=== PATIENT | male | born 1975 | race Caucasian/White ===

== ENCOUNTER 2019-07-02 23:01 | Inpatient (IN) | payer OTHER ==
[2019-07-02 23:35] VITALS: BMI 29.4
--- NOTE | 2019-07-03 00:16 | HP ---
CIWA Score Nausea/Vomitin-Mild Nausea/No Vomiting Muscle Tremors: 4-Moderate,w/Arms Extend Anxiety: 3 Agitation: 3 Paroxysmal Sweats: 3 Orientation: 0-Oriented Tacttile Disturbances: 0-None Auditory Disturbances: 0-None Visual Disturbances: 0-None Headache: 4-Moderately Severe CIWA-Ar Total Score: 18 - Admission Criteria OASAS Guidelines: Admission for Medically Managed Detox: Requires at least one of the followin. CIWA greater than 12 2. Seizures within the past 24 hours 3. Delirium tremens within the past 24 hours 4. Hallucinations within the past 24 hours 5. Acute intervention needed for co occurring medical disorder 6. Acute intervention needed for co occurring psychiatric disorder 7. Severe withdrawal that cannot be handled at a lower level of care (continued vomiting, continued diarrhea, abnormal vital signs) requiring intravenous medication and/or fluids 8. Admitting History and Physical - Smoking History Smoking history: Former smoker Have you smoked in the past 12 months: No - Alcohol/Substance Use Hx Alcohol Use: Yes Admission ROS [facility] - [facility] Chief Complaint: Alcohol withdrawal symptoms Allergies/Adverse Reactions: Allergies Allergy/AdvReac Type Severity Reaction Status Date / Time peanut [Peanut] Allergy Severe Itching Verified 07/02/19 23:16 History of Present Illness: 44 years old male with a long history of alcohol dependence is seeking admission to detox. Patient was transferred from [facility] emergency room . He denies pasty medical history and reports psych. history of depression and anxiety. 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 His last blackout was yesterday where he was unresponsive and received Narcan from EMS. Patient reports that he is unemployed and lives in [place] [facility]. He denies suicide attempt and suicidal ideation at this time. Exam Limitations: No Limitations - Ebola screening Have you traveled outside of the country in the last 21 days: No (N) Have you had contact with anyone from an Ebola affected area: No Do you have a fever: No - Review of Systems Constitutional: Chills, Malaise, Night Sweats, Changes in sleep EENT: reports: No Symptoms Reported Respiratory: reports: No Symptoms reported Cardiac: reports: No Symptoms Reported GI: reports: Nausea, Poor Appetite, Poor Fluid Intake, Abdominal cramping : reports: No Symptoms Reported Musculoskeletal: reports: Back Pain Integumentary: reports: Dryness, Flushing Neuro: reports: Tremors Endocrine: reports: No Symptoms Reported Hematology: reports: No Symptoms Reported Psychiatric: reports: Mood/Affect Appropiate, Orientated x3, Anxious, Depressed Other Systems: Reviewed and Negative Patient History - Patient Medical History Hx Anemia: No Hx Asthma: No Hx Chronic Obstructive Pulmonary Disease (COPD): No Hx Cardiac Disorders: No Hx Congestive Heart Failure: No Hx Hypertension: No Hx Hypercholesterolemia: No Hx Pacemaker: No HX Cerebrovascular Accident: No Hx Seizures: No Hx Diabetes: No Hx Gastrointestinal Disorders: No Hx Liver Disease: No Hx Genitourinary Disorders: No Hx Sexually Transmitted Disorders: No Hx Renal Disease (ESRD): No Hx Thyroid Disease: No Hx Human Immunodeficiency Virus (HIV): No (Negative 2019) Hx Hepatitis C: No Hx Depression: Yes Hx Suicide Attempt: No Hx Bipolar Disorder: No Hx Schizophrenia: No Other Medical History: Anxiety - - Patient Surgical History Past Surgical History: No - PPD History Previous Implant?: No Documented Results: Negative w/proof Implanted On Prior R Admission?: Yes Date: 12/20/11 PPD to be Administered?: Yes - Reproductive History Patient is a Female of Child Bearing Age (11 -55 yrs old): No (male) - Smoking Cessation Smoking history: Current every day smoker Have you smoked in the past 12 months: No Aproximately how many cigarettes per day: 20 Hx Chewing Tobacco Use: No Initiated information on smoking cessation: Yes 'Breaking Loose' booklet given: 07/03/19 - Substance & Tx. History Hx Alcohol Use: Yes Hx Substance Use: Yes Substance Use Type: Alcohol, Cocaine Hx Substance Use Treatment: Yes ([facility]) - Substances abused Alcohol Substance route: Oral Frequency: Daily Amount used: 12 packs beer Age of first use: 18 Date of last use: 07/02/19 Cocaine Substance route: Smoking Frequency: 1-2 times per week Amount used: 300 hundred dollars. Age of first use: 37 Date of last use: 06/18/19 Admission Physical Exam BHS - Vital Signs Vital Signs: Vital Signs - 24 hr 07/02/19 23:15 Temperature 98.0 F Pulse Rate 69 Respiratory 16 Rate Blood Pressure 126/74 - Physical General Appearance: Yes: Moderate Distress, Tremorous, Sweating, Anxious HEENTM: Yes: Within Normal Limits Respiratory: Yes: Lungs Clear, Normal Breath Sounds, No Respiratory Distress Neck: Yes: Within Normal Limits Breast: Yes: Breast Exam Deferred Cardiology: Yes: Regular Rhythm, Regular Rate Abdominal: Yes: Normal Bowel Sounds, Soft Genitourinary: Yes: Within Normal Limits Back: Yes: Normal Inspection Musculoskeletal: Yes: Within Normal Limits Extremities: Yes: Normal Inspection Neurological: Yes: Within Normal Limits, Alert, Normal Mood/Affect Integumentary: Yes: Warm Lymphatic: Yes: Within Normal Limits - Diagnostic (1) Alcohol dependence with withdrawal, uncomplicated Current Visit: Yes Status: Acute (2) Nicotine dependence Current Visit: Yes Status: Chronic Qualifiers: Nicotine product type: cigarettes Substance use status: in withdrawal Qualified Code(s): F17.213 - Nicotine dependence, cigarettes, with withdrawal (3) Depression Current Visit: Yes Status: Chronic Qualifiers: Depression Type: unspecified Qualified Code(s): F32.9 - Major depressive disorder, single episode, unspecified (4) Anxiety Current Visit: Yes Status: Chronic Cleared for Admission [facility] - Detox or Rehab [facility] Level of Care: Medically Managed Detox Regimen/Protocol: Librium Claeared for Rehab Admission: No Breathalyzer - Breathalyzer Breathalyzer: 0.19 Urine Drug Screen - Test Device Lot number: [id number] Expiration date: 01/08/21 - Control Is test valid?: Yes - Results Drug screen NEGATIVE: No Urine drug screen results: BZO-Benzodiazepines Inpatient Rehab Admission - Rehab Decision to Admit Inpatient rehab admission?: No
[2019-07-03] MEDS ORDERED: BISMUTH SUBSALICYLATE 524 MG/30 ML UD PO PRN (00:25)
[2019-07-03] MEDS ORDERED: MENTHOL/PHENOL 1 EACH UD MM PRN (00:25)
[2019-07-03] MEDS ORDERED: hydrOXYzine PAMOATE 25 MG CAPSULE (FP) PO PRN (00:25)
[2019-07-03] MEDS ORDERED: ACETAMINOPHEN 325 MG TABLET (FP) PO PRN ×2 (00:25)
[2019-07-03] MEDS ORDERED: MELATONIN 5 MG TABLETS PO PRN ×2 (00:25→22:00)
[2019-07-03] MEDS ORDERED: METHOCARBAMOL 500 MG TABLET PO PRN (00:25)
[2019-07-03] MEDS ORDERED: MAG HYDROX/AL HYDROX/SIMETH 30 ML UNIT-DOSE CUP PO PRN (00:25)
[2019-07-03] MEDS ORDERED: IBUPROFEN 400 MG TABLET (FP) PO PRN (00:25)
[2019-07-03] MEDS ORDERED: MAGNESIUM CITRATE 300 ML BOTTLE PO PRN (00:25)
[2019-07-03] MEDS ORDERED: MAGNESIUM HYDROX 2400MG/30ML ORAL SUSPENSION 30 ML CUP PO PRN (00:25)
[2019-07-03] MEDS ORDERED: NICOTINE POLACRILEX 2 MG GUM BUC PRN (00:25)
[2019-07-03] MEDS: chlordiazePOXIDE HCL 25 MG CAPSULE PO PRN ×2 (01:44→14:48)
[2019-07-03] MEDS: chlordiazePOXIDE HCL 25 MG CAPSULE PO SCH ×3 (06:18→17:42)
[2019-07-03] MEDS ORDERED: NICOTINE 21 MG/24 HOURS TOPICAL PATCH TD SCH (10:00)
[2019-07-03] MEDS ORDERED: PRENATAL VITAMINS W/ FOLIC ACID TABLET (FP) PO SCH (10:00)
--- NOTE | 2019-07-03 10:16 | PN ---
S CIWA - CIWA Score Nausea/Vomitin-Mild Nausea/No Vomiting Muscle Tremors: 2 Anxiety: 2 Agitation: 1-Slight > Activity Paroxysmal Sweats: 3 Orientation: 0-Oriented Tacttile Disturbances: 1-Very Mild Itch/Numbness Auditory Disturbances: 0-None Visual Disturbances: 1-Very Mild Sensitivity Headache: 0-None Present CIWA-Ar Total Score: 11 BHS Progress Note (SOAP) Subjective: Patient is a 44 yo male with hx of alcohol dependence on librium detox protocol c/o of sweats, back pain, body aches, chills. Objective: 07/03/19 12:38 Vital Signs Temperature 97.4 F L 07/03/19 09:27 Pulse Rate 71 07/03/19 09:27 Respiratory Rate 18 07/03/19 09:27 Blood Pressure 128/80 07/03/19 09:27 O2 Sat by Pulse Oximetry (%) labs pending Assessment: 07/03/19 12:38 Patient is Aox3 no acute distress + diaphoretic full ROM no gait disturbance ambulating in the unit withdrawal sx Plan: increase fluids continue detox continue to monitor
[2019-07-03] MEDS ORDERED: FLU VACCINE QUAD 60 MCG/0.5 ML (MDV 19-20) IM ONE (12:00)
[2019-07-03] MEDS ORDERED: PNEUMOC 13-VAL CONJ-DIP CRM/PF 0.5 ML DISP.SYRIN IM ONE (12:00)
[2019-07-03] MEDS ORDERED: PNEUMOCOCCAL 23 VACCINE 0.5 ML VIAL IM ONE (12:00)
--- NOTE | 2019-07-03 12:20 | CONSULT ---
[facility] Psychiatric Consult - Data Date of interview: 07/03/19 Admission source: [facility] Identifying data: Patient is a 44 year old single male, without children, unemployed, homeless, and is supported by [facility]. This is patient's first admission to detox at [facility]. Patient admitted to for alcohol and cocaine dependence. Substance Abuse History: Smoking Cessation. Smoking history: Current every day smoker. Have you smoked in the past 12 months: No. Aproximately how many cigarettes per day: 20. Hx Chewing Tobacco Use: No. Initiated information on smoking cessation: Yes. 'Breaking Loose' booklet given: 07/03/19. - Substance & Tx. History. Hx Alcohol Use: Yes. Hx Substance Use: Yes. Substance Use Type : Alcohol, Cocaine. Hx Substance Use Treatment: Yes ([facility]). - Substances abused. Alcohol. Substance route: Oral. Frequency: Daily. Amount used: 12 packs beer. Age of first use: 18. Date of last use: 07/02/19. Cocaine. Substance route: Smoking. Frequency: 1-2 times per week. Amount used: 300 hundred dollars. Age of first use: 37. Date of last use: 06/18/19 Psychiatric History: Patient presents as a vague historian. Patient's first psychiatric contact was in 2004 at a private office due to feeling depressed. He was prescribed klonopin + other psychotropic medications. Stated to handbook writer, " I do not want to go through every medications i have taken." States he was diagnosed with OCD, schizoaffective disorder. Mr. Mcdowell's most recent outpatient psychiatric care was one year ago in [place] but is unable to recall medications prescribed. Patient appears to have a history of noncompliance to treatment. He denies history of psychiatric hospitalizations and suicide attempt. At present he denies auditory/visual hallucinations. Physical/Sexual Abuse/Trauma History: denies. Mental Status Exam - Mental Status Exam Alert and Oriented to: Time, Place, Person Cognitive Function: Good Patient Appearance: Well Groomed Mood: Anxious, Irritable (slightly irritable but in control) Affect: Mood Congruent Patient Behavior: Fatigued, Uncooperative (unwilling to elaborate on history. states he's not in the right state of mind to answer all the questions. ) Speech Pattern: Appropriate Voice Loudness: Normal Thought Process: Goal Oriented Thought Disorder: Not Present Hallucinations: Denies Suicidal Ideation: Denies Homicidal Ideation: Denies Insight/Judgement: Poor Sleep: Poorly Appetite: Fair Muscle strength/Tone: Normal Gait/Station: Normal Psychiatric Findings - Problem List ([place] 1, 2,3) (1) Alcohol dependence with withdrawal, uncomplicated Current Visit: Yes Status: Acute (2) Nicotine dependence Current Visit: Yes Status: Chronic Qualifiers: Nicotine product type: cigarettes Substance use status: in withdrawal Qualified Code(s): F17.213 - Nicotine dependence, cigarettes, with withdrawal (3) Substance induced mood disorder Current Visit: Yes Status: Acute (4) Substance-induced sleep disorder Current Visit: Yes Status: Acute (5) Mood disorder Current Visit: No Status: Suspected - Initial Treatment Plan Initial Treatment Plan: Psychoeducation provided. Detoxification in progress. Will order Melatonin 10mg HS. Benefits and side effects discussed. Verbal consent given.
--- NOTE | 2019-07-03 15:15 | EKG ---
Test Reason : Blood Pressure : / mmHG Vent. Rate : 065 BPM Atrial Rate : 065 BPM P-R Int : 140 ms QRS Dur : 088 ms QT Int : 434 ms P-R-T Axes : 043 066 030 degrees QTc Int : 451 ms NORMAL SINUS RHYTHM NORMAL ECG NO PREVIOUS ECGS AVAILABLE Confirmed by CR PACHECO MD ([id number]) on 07/03/2019 3:15:02 PM Referred By: Jean Hendrickson Confirmed By:CR PACHECO MD
[2019-07-03 21:36] VITALS: BP 129/80; PULSE 69; TEMP 97.7
--- NOTE | 2019-07-03 21:43 | DS ---
[facility] Detox Discharge Summary Admission Date: 07/03/19 Discharge Date: 07/03/19 (Pt left AMA) - History Present History: Alcohol Dependence, Cocaine Dependence Additional Comments: As per H&P: "44 years old male with a long history of alcohol dependence is seeking admission to detox. Patient was transferred from [facility] emergency room . He denies pasty medical history and reports psych. history of depression and anxiety. 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 His last blackout was yesterday where he was unresponsive and received Narcan from EMS. Patient reports that he is unemployed and lives in a jail. He denies suicide attempt and suicidal ideation at this time". Pt left AMA, pt did not complete the detox protocol. Pt did not wait for the provider to evaluate him. As per RN, pt states, he just want to leave and an attempt to let him stay and complete the detox protocol failed. Pt was admitted today and left AMA. Pertinent Past History: h/o alcohol and cocaine use disorder. - Physical Exam Results Vital Signs: Vital Signs Temperature 97.7 F 07/03/19 21:35 Pulse Rate 69 07/03/19 21:35 Respiratory Rate 18 07/03/19 21:35 Blood Pressure 129/80 07/03/19 21:35 O2 Sat by Pulse Oximetry (%) Vital Signs 07/03/19 07/03/19 17:19 21:35 Temperature 98.1 F 97.7 F Pulse Rate 66 69 Respiratory 18 18 Rate Blood Pressure 131/84 129/80 Pertinent Admission Physical Exam Findings: withdrawal symptoms. - Medication Discharge Medications: Ambulatory Orders Fluoxetine HCl [Prozac] 20 mg PO DAILY 12/18/11 Gabapentin 1,200 mg PO TID 12/18/11 clonazePAM [Klonopin] 1 mg PO BID 12/18/11 - Diagnosis (1) Alcohol dependence Status: Active (2) Alcohol dependence with withdrawal, uncomplicated Status: Acute (3) Cocaine dependence Status: Chronic (4) Nicotine dependence Status: Chronic Qualifiers: Nicotine product type: cigarettes Substance use status: in withdrawal Qualified Code(s): F17.213 - Nicotine dependence, cigarettes, with withdrawal - AMA Did Patient Leave Against Medical Advice: Yes
[2019-07-03] MEDS ORDERED: THIAMINE HCL 100 MG TABLET (FP) PO SCH (22:00)
[2019-07-04] MEDS ORDERED: chlordiazePOXIDE HCL 25 MG CAPSULE PO SCH (05:00)
[2019-07-05] MEDS ORDERED: chlordiazePOXIDE HCL 10 MG CAPSULE PO PRN
[2019-07-05] MEDS ORDERED: chlordiazePOXIDE HCL 10 MG CAPSULE PO SCH (05:00)
[2019-07-06] MEDS ORDERED: chlordiazePOXIDE HCL 10 MG CAPSULE PO SCH (05:00)
[2019-07-07] MEDS ORDERED: chlordiazePOXIDE HCL 10 MG CAPSULE PO ONE (05:00)
== END 2019-07-03 21:09 | disposition left against medical advice (07) | DRG 894 ==
LOC: YASAS 23:01 → Y3N 07-03 01:01
PROVIDERS: ADMIT Allergy & Immunology; ATTEND Allergy & Immunology
PROC: HZ2ZZZZ Detoxification Services for Substance Abuse Treatment (ICD-10-PCS; principal; 2019-07-03)
DX: F10.230 Alcohol dependence with withdrawal, uncomplicated (principal); F14.20 Cocaine dependence, uncomplicated; F19.282 Other psychoactive substance dependence with psychoactive substance-induced sleep disorder; F17.213 Nicotine dependence, cigarettes, with withdrawal; F19.24 Other psychoactive substance dependence with psychoactive substance-induced mood disorder; F32.9 Major depressive disorder, single episode, unspecified; F39 Unspecified mood [affective] disorder; F41.8 Other specified anxiety disorders
CPT/HCPCS: 93005; 93010

== ENCOUNTER 2021-07-21 13:46 | Inpatient (IN) | payer OTHER ==
[2021-07-21] MEDS ORDERED: MENTHOL/PHENOL 1 EACH UD MM PRN (15:15)
[2021-07-21] MEDS ORDERED: ACETAMINOPHEN 325 MG TABLET (FP) PO PRN (15:15)
[2021-07-21] MEDS ORDERED: MAG HYDROX/AL HYDROX/SIMETH 30 ML UNIT-DOSE CUP PO PRN (15:15)
[2021-07-21] MEDS ORDERED: BISMUTH SUBSALICYLATE 524 MG/30 ML PO PRN (15:15)
[2021-07-21] MEDS ORDERED: LORazepam 1 MG TABLET PO PRN (15:15)
[2021-07-21] MEDS ORDERED: ONDANSETRON *ODT* 4 MG TABLET SL PRN (15:15)
[2021-07-21] MEDS ORDERED: MAGNESIUM HYDROX 2400MG/30ML ORAL SUSPENSION 30 ML CUP PO PRN (15:15)
[2021-07-21] MEDS ORDERED: MAGNESIUM CITRATE 300 ML BOTTLE PO PRN (15:15)
[2021-07-21 15:46] VITALS: BMI 35.5
[2021-07-21] MEDS: LORazepam 2 MG TABLET PO SCH ×2 (17:00→23:42)
[2021-07-21] MEDS: MELATONIN 5 MG TABLETS PO SCH (23:43)
[2021-07-21] MEDS: NICOTINE 14 MG/24 HOURS TOPICAL PATCH TD SCH (23:43)
[2021-07-21] MEDS: hydrOXYzine PAMOATE 25 MG CAPSULE (FP) PO SCH (23:44)
[2021-07-21] MEDS: PRENATAL VITAMINS W/ FOLIC ACID TABLET (FP) PO SCH (23:44)
[2021-07-21] MEDS: THIAMINE HCL 100 MG TABLET (FP) PO SCH (23:45)
[2021-07-22] MEDS ORDERED: LORazepam 2 MG TABLET ONE ×2 (06:38→10:13)
[2021-07-22] MEDS ORDERED: hydrOXYzine PAMOATE 25 MG CAPSULE (FP) PO ONE ×2 (06:38→10:13)
[2021-07-22] MEDS: hydrOXYzine PAMOATE 25 MG CAPSULE (FP) PO SCH ×5 (06:45→22:09)
[2021-07-22] MEDS: LORazepam 2 MG TABLET PO SCH ×4 (06:45→22:09)
[2021-07-22] MEDS: NICOTINE 14 MG/24 HOURS TOPICAL PATCH TD SCH (10:15)
[2021-07-22] MEDS: PRENATAL VITAMINS W/ FOLIC ACID TABLET (FP) PO SCH (10:15)
[2021-07-22 10:57] LABS: HEMATOCRIT 38.8 % (35.4-49); HEMOGLOBIN 13.5 GM/dL (11.7-16.9); MCH 29.7 pg (25.7-33.7); MCHC 34.8 g/dl (32.0-35.9); MEAN CELL VOLUME 85.5 fl (80-96); MEAN PLT VOLUME 9.4 fl (7.5-11.1); PLATELET COUNT 185 10^3/uL (134-434); RBC 4.54 M/mm3 (4.00-5.60); RDW 13.9 % (11.9-15.9); WHITE BLOOD COUNT 4.2 K/mm3 (4.0-10.0)
[2021-07-22 11:06] LABS: CALCIUM 8.7 mg/dL (8.5-10.1)
[2021-07-22 11:07] LABS: ALBUMIN 3.6 g/dl (3.4-5.0); BLOOD UREA NITROGEN 13.1 mg/dL (7-18)
[2021-07-22 11:11] LABS: BILIRUBIN,TOTAL 0.6 mg/dL (0.2-1); TOT PROT 6.5 g/dl (6.4-8.2)
[2021-07-22 11:52] LABS: HIV INTERPRETATION NEGATIVE (NEGATIVE)
[2021-07-22] MEDS ORDERED: PNEUMOCOCCAL 23 VACCINE 0.5 ML VIAL IM ONE (12:00)
[2021-07-22] MEDS ORDERED: PNEUMOC 13-VAL CONJ-DIP CRM/PF 0.5 ML DISP.SYRIN IM ONE (12:00)
[2021-07-22] MEDS ORDERED: FLU VACC QS2021-22(6MOS UP)/PF 60 MCG/0.5 ML SYRINGE IM ONE (12:00)
[2021-07-22] MEDS: GABAPENTIN 300 MG CAPSULE PO SCH ×2 (15:31→22:10)
[2021-07-22] MEDS: IBUPROFEN 400 MG TABLET (FP) PO PRN (15:31)
[2021-07-22] MEDS: THIAMINE HCL 100 MG TABLET (FP) PO SCH (22:09)
[2021-07-22] MEDS: MELATONIN 5 MG TABLETS PO SCH (22:09)
[2021-07-22] MEDS: QUEtiapine FUMARATE 100 MG TABLET (FP) PO SCH (22:10)
[2021-07-23] MEDS: LORazepam 1 MG TABLET PO SCH ×4 (05:55→22:04)
[2021-07-23] MEDS: hydrOXYzine PAMOATE 25 MG CAPSULE (FP) PO SCH ×5 (05:55→22:03)
[2021-07-23] MEDS: GABAPENTIN 300 MG CAPSULE PO SCH ×3 (05:55→22:03)
[2021-07-23] MEDS: PRENATAL VITAMINS W/ FOLIC ACID TABLET (FP) PO SCH (10:21)
[2021-07-23] MEDS: FLUoxetine HCL 20 MG CAPSULE PO SCH (10:21)
[2021-07-23] MEDS: ARIPiprazole 5 MG TABLET PO SCH (13:31)
[2021-07-23] MEDS: NICOTINE POLACRILEX 4 MG GUM BUC PRN (17:45)
[2021-07-23] MEDS: IBUPROFEN 400 MG TABLET (FP) PO PRN (17:46)
[2021-07-23] MEDS: THIAMINE HCL 100 MG TABLET (FP) PO SCH (22:03)
[2021-07-23] MEDS: MELATONIN 5 MG TABLETS PO SCH (22:03)
[2021-07-23] MEDS: METHOCARBAMOL 500 MG TABLET PO PRN (22:03)
[2021-07-23] MEDS: QUEtiapine FUMARATE 100 MG TABLET (FP) PO SCH (22:03)
[2021-07-24] MEDS ORDERED: LORazepam 0.5 MG TABLET PO PRN
[2021-07-24] MEDS: hydrOXYzine PAMOATE 25 MG CAPSULE (FP) PO SCH ×5 (05:52→22:11)
[2021-07-24] MEDS: LORazepam 0.5 MG TABLET PO SCH ×4 (05:52→22:09)
[2021-07-24] MEDS: GABAPENTIN 300 MG CAPSULE PO SCH ×3 (05:53→22:11)
[2021-07-24] MEDS: IBUPROFEN 400 MG TABLET (FP) PO PRN ×3 (05:54→22:10)
[2021-07-24] MEDS: FLUoxetine HCL 20 MG CAPSULE PO SCH (10:10)
[2021-07-24] MEDS: ARIPiprazole 5 MG TABLET PO SCH (10:10)
[2021-07-24] MEDS: PRENATAL VITAMINS W/ FOLIC ACID TABLET (FP) PO SCH (10:10)
[2021-07-24] MEDS: NICOTINE POLACRILEX 4 MG GUM BUC PRN ×3 (10:11→17:29)
[2021-07-24] MEDS: NICOTINE 10 MG CARTRIDGE (INHALER) IH PRN (17:30)
[2021-07-24] MEDS: ACETAMINOPHEN 325 MG TABLET (FP) PO PRN (17:31)
[2021-07-24] MEDS: THIAMINE HCL 100 MG TABLET (FP) PO SCH (22:09)
[2021-07-24] MEDS: METHOCARBAMOL 500 MG TABLET PO PRN (22:09)
[2021-07-24] MEDS: MELATONIN 5 MG TABLETS PO SCH (22:09)
[2021-07-24] MEDS: QUEtiapine FUMARATE 100 MG TABLET (FP) PO SCH (22:11)
[2021-07-25] MEDS ORDERED: LORazepam 0.5 MG TABLET PO ONE (05:00)
[2021-07-25] MEDS: hydrOXYzine PAMOATE 25 MG CAPSULE (FP) PO SCH ×5 (05:39→21:11)
[2021-07-25] MEDS: GABAPENTIN 300 MG CAPSULE PO SCH ×3 (05:39→21:11)
[2021-07-25] MEDS: ARIPiprazole 5 MG TABLET PO SCH (10:13)
[2021-07-25] MEDS: FLUoxetine HCL 20 MG CAPSULE PO SCH (10:14)
[2021-07-25] MEDS: PRENATAL VITAMINS W/ FOLIC ACID TABLET (FP) PO SCH (10:32)
[2021-07-25] MEDS ORDERED: MODERNA COVID-19 VACC,MRNA/PF 100 MCG/0.5 ML IM ONE (12:00)
[2021-07-25] MEDS: ACETAMINOPHEN 325 MG TABLET (FP) PO PRN (13:02)
[2021-07-25] MEDS: NICOTINE 10 MG CARTRIDGE (INHALER) IH PRN (17:38)
[2021-07-25] MEDS: THIAMINE HCL 100 MG TABLET (FP) PO SCH (21:10)
[2021-07-25] MEDS: MELATONIN 5 MG TABLETS PO SCH (21:10)
[2021-07-25] MEDS: IBUPROFEN 400 MG TABLET (FP) PO PRN (21:11)
[2021-07-25] MEDS: QUEtiapine FUMARATE 100 MG TABLET (FP) PO SCH (21:11)
[2021-07-26] MEDS: hydrOXYzine PAMOATE 25 MG CAPSULE (FP) PO SCH ×5 (05:52→21:05)
[2021-07-26] MEDS: GABAPENTIN 300 MG CAPSULE PO SCH ×3 (05:52→21:05)
[2021-07-26] MEDS: NICOTINE POLACRILEX 4 MG GUM BUC PRN ×3 (06:14→13:52)
[2021-07-26] MEDS: PRENATAL VITAMINS W/ FOLIC ACID TABLET (FP) PO SCH (10:16)
[2021-07-26] MEDS: FLUoxetine HCL 20 MG CAPSULE PO SCH (10:16)
[2021-07-26] MEDS: ARIPiprazole 5 MG TABLET PO SCH (11:57)
[2021-07-26 12:18] LABS: URINE APPEARANCE CLEAR; URINE BILIRUBIN NEGATIVE (NEGATIVE); URINE COLOR YELLOW; URINE GLUCOSE (UA) NEGATIVE (NEGATIVE); URINE KETONE NEGATIVE (NEGATIVE); URINE LEUK ESTERASE NEGATIVE (NEGATIVE); URINE NITRITE NEGATIVE (NEGATIVE); URINE PROTEIN NEGATIVE (NEGATIVE); URINE UROBILINOGEN 0.2 mg/dL (0.2-1.0)
[2021-07-26] MEDS: NICOTINE 14 MG/24 HOURS TOPICAL PATCH TD SCH (14:44)
[2021-07-26] MEDS: IBUPROFEN 400 MG TABLET (FP) PO PRN ×2 (14:44→21:06)
[2021-07-26] MEDS: QUEtiapine FUMARATE 100 MG TABLET (FP) PO SCH (21:05)
[2021-07-26] MEDS: MELATONIN 5 MG TABLETS PO SCH (21:05)
[2021-07-26] MEDS: THIAMINE HCL 100 MG TABLET (FP) PO SCH (21:05)
[2021-07-27] MEDS: GABAPENTIN 300 MG CAPSULE PO SCH (06:05)
[2021-07-27] MEDS: hydrOXYzine PAMOATE 25 MG CAPSULE (FP) PO SCH ×2 (06:05→09:14)
[2021-07-27 07:16] VITALS: TEMP 98.2
[2021-07-27] MEDS: NICOTINE 14 MG/24 HOURS TOPICAL PATCH TD SCH (09:12)
[2021-07-27] MEDS: ARIPiprazole 5 MG TABLET PO SCH (09:12)
[2021-07-27] MEDS: FLUoxetine HCL 20 MG CAPSULE PO SCH (09:13)
[2021-07-27] MEDS: PRENATAL VITAMINS W/ FOLIC ACID TABLET (FP) PO SCH (09:13)
[2021-07-27 09:17] VITALS: BP 135/82; PULSE 84
== END 2021-07-27 11:08 | disposition left against medical advice (07) | DRG 894 ==
LOC: YASAS 13:46 → Y3N 07-22 10:36 → Y3W 07-25 19:07
PROVIDERS: ADMIT Allergy & Immunology; ATTEND Allergy & Immunology
PROC: HZ2ZZZZ Detoxification Services for Substance Abuse Treatment (ICD-10-PCS; 2021-07-22)
PROC: HZ42ZZZ Group Counseling for Substance Abuse Treatment, Cognitive-Behavioral (ICD-10-PCS; principal; 2021-07-25)
DX: F10.20 Alcohol dependence, uncomplicated (principal); F17.210 Nicotine dependence, cigarettes, uncomplicated; F19.24 Other psychoactive substance dependence with psychoactive substance-induced mood disorder; F32.9 Major depressive disorder, single episode, unspecified; G62.9 Polyneuropathy, unspecified; I10 Essential (primary) hypertension; K21.9 Gastro-esophageal reflux disease without esophagitis; G47.00 Insomnia, unspecified; M54.2 Cervicalgia; M54.50 Low back pain, unspecified; G89.29 Other chronic pain; R74.01 Elevation of levels of liver transaminase levels
CPT/HCPCS: 0012A; 36415; 80053; 81003; 83036; 85027; 86780; 87389; 90686; 90732; 91301; C9803; G0008; G0009; U0003; U0005

== ENCOUNTER 2021-12-24 11:45 | Inpatient (IN) | payer OTHER ==
[2021-12-24 12:41] VITALS: BMI 32.5
[2021-12-24] MEDS ORDERED: ACETAMINOPHEN 325 MG TABLET (FP) PO PRN ×2 (13:32)
[2021-12-24] MEDS ORDERED: LOPERAMIDE HCL 2 MG CAPSULE PO PRN (13:32)
[2021-12-24] MEDS ORDERED: chlordiazePOXIDE HCL 25 MG CAPSULE PO ONE (13:32)
[2021-12-24] MEDS ORDERED: BISMUTH SUBSALICYLATE 524 MG/30 ML PO PRN (13:32)
[2021-12-24] MEDS ORDERED: DICYCLOMINE HCL 10 MG CAPSULE PO PRN (13:32)
[2021-12-24] MEDS ORDERED: IBUPROFEN 400 MG TABLET (FP) PO PRN (13:32)
[2021-12-24] MEDS ORDERED: NICOTINE 10 MG CARTRIDGE (INHALER) IH PRN (13:32)
[2021-12-24] MEDS ORDERED: chlordiazePOXIDE HCL 25 MG CAPSULE PO PRN (13:32)
[2021-12-24] MEDS ORDERED: IBUPROFEN 600 MG TABLET (FP) PO PRN (13:32)
[2021-12-24] MEDS ORDERED: MAGNESIUM HYDROX 2400MG/30ML ORAL SUSPENSION 30 ML CUP PO PRN (13:32)
[2021-12-24] MEDS ORDERED: MAG HYDROX/AL HYDROX/SIMETH 30 ML UNIT-DOSE CUP PO PRN (13:32)
[2021-12-24] MEDS ORDERED: METHOCARBAMOL 500 MG TABLET PO PRN (13:32)
[2021-12-24] MEDS ORDERED: BENZOCAINE/MENTHOL (CHLORASEPTIC ) LOZENGE MM PRN (13:32)
[2021-12-24] MEDS ORDERED: MAGNESIUM CITRATE 300 ML BOTTLE PO PRN (13:32)
[2021-12-24] MEDS ORDERED: COLLOIDAL OATMEAL 1 BAR EACH TP PRN (13:34)
[2021-12-24] MEDS: chlordiazePOXIDE HCL 25 MG CAPSULE PO SCH ×2 (16:53→22:37)
[2021-12-24] MEDS: hydrOXYzine PAMOATE 25 MG CAPSULE (FP) PO SCH ×3 (16:57→22:36)
[2021-12-24] MEDS: SULFAMETHOXAZOLE/TRIMETHOPRIM 800MG/160MG D.S. TABLET PO SCH ×2 (17:05→22:36)
[2021-12-24 18:55] LABS: PH,URINE 5.5 (5.0-8.0); URINE APPEARANCE CLEAR; URINE BILIRUBIN NEGATIVE (NEGATIVE); URINE COLOR YELLOW; URINE GLUCOSE (UA) NEGATIVE (NEGATIVE); URINE KETONE NEGATIVE (NEGATIVE); URINE LEUK ESTERASE NEGATIVE (NEGATIVE); URINE NITRITE NEGATIVE (NEGATIVE); URINE PROTEIN NEGATIVE (NEGATIVE); URINE UROBILINOGEN 0.2 mg/dL (0.2-1.0)
[2021-12-24] MEDS: MELATONIN 5 MG TABLETS PO SCH (22:36)
[2021-12-24] MEDS: THIAMINE HCL 100 MG TABLET (FP) PO SCH (22:36)
[2021-12-25] MEDS: hydrOXYzine PAMOATE 25 MG CAPSULE (FP) PO SCH ×5 (05:39→22:11)
[2021-12-25] MEDS: chlordiazePOXIDE HCL 25 MG CAPSULE PO SCH ×4 (05:39→22:11)
[2021-12-25] MEDS: PRENATAL VITAMINS W/ FOLIC ACID TABLET (FP) PO SCH (10:29)
[2021-12-25] MEDS: SULFAMETHOXAZOLE/TRIMETHOPRIM 800MG/160MG D.S. TABLET PO SCH ×2 (10:29→22:11)
[2021-12-25 11:15] LABS: HEMATOCRIT 40.4 % (35.4-49); HEMOGLOBIN 13.9 GM/dL (11.7-16.9); MCH 29.2 pg (25.7-33.7); MCHC 34.4 g/dl (32.0-35.9); MEAN CELL VOLUME 84.9 fl (80-96); MEAN PLT VOLUME 10.3 fl (7.5-11.1); PLATELET COUNT 183 10^3/uL (134-434); RBC 4.76 M/mm3 (4.00-5.60); RDW 13.5 % (11.9-15.9); WHITE BLOOD COUNT 5.7 K/mm3 (4.0-10.0)
[2021-12-25 12:19] LABS: ALBUMIN 3.4 g/dl (3.4-5.0); BLOOD UREA NITROGEN 14.8 mg/dL (7-18); CALCIUM 8.8 mg/dL (8.5-10.1)
[2021-12-25 12:23] LABS: TOT PROT 6.4 g/dl (6.4-8.2)
[2021-12-25 12:24] LABS: BILIRUBIN,TOTAL 0.4 mg/dL (0.2-1)
[2021-12-25] MEDS: ONDANSETRON *ODT* 4 MG TABLET SL PRN (17:31)
[2021-12-25] MEDS: MELATONIN 5 MG TABLETS PO SCH (22:11)
[2021-12-25] MEDS: QUEtiapine FUMARATE 100 MG TABLET (FP) PO SCH (22:11)
[2021-12-25] MEDS: THIAMINE HCL 100 MG TABLET (FP) PO SCH (22:11)
[2021-12-26] MEDS: chlordiazePOXIDE HCL 25 MG CAPSULE PO SCH ×4 (05:43→22:17)
[2021-12-26] MEDS: hydrOXYzine PAMOATE 25 MG CAPSULE (FP) PO SCH ×5 (05:43→22:18)
[2021-12-26] MEDS: PRENATAL VITAMINS W/ FOLIC ACID TABLET (FP) PO SCH (10:35)
[2021-12-26] MEDS: SULFAMETHOXAZOLE/TRIMETHOPRIM 800MG/160MG D.S. TABLET PO SCH ×2 (10:35→22:17)
[2021-12-26] MEDS: GABAPENTIN 400 MG CAPSULE PO SCH ×2 (14:09→22:17)
[2021-12-26] MEDS: ONDANSETRON *ODT* 4 MG TABLET SL PRN (17:58)
[2021-12-26] MEDS: QUEtiapine FUMARATE 100 MG TABLET (FP) PO SCH (22:17)
[2021-12-26] MEDS: THIAMINE HCL 100 MG TABLET (FP) PO SCH (22:17)
[2021-12-26] MEDS: MELATONIN 5 MG TABLETS PO SCH (22:17)
[2021-12-27] MEDS ORDERED: chlordiazePOXIDE HCL 10 MG CAPSULE PO PRN
[2021-12-27] MEDS: hydrOXYzine PAMOATE 25 MG CAPSULE (FP) PO SCH ×6 (05:48→22:03)
[2021-12-27] MEDS: GABAPENTIN 400 MG CAPSULE PO SCH ×3 (05:48→22:03)
[2021-12-27] MEDS: chlordiazePOXIDE HCL 10 MG CAPSULE PO SCH ×4 (05:48→22:03)
[2021-12-27] MEDS: PRENATAL VITAMINS W/ FOLIC ACID TABLET (FP) PO SCH (10:19)
[2021-12-27] MEDS: SULFAMETHOXAZOLE/TRIMETHOPRIM 800MG/160MG D.S. TABLET PO SCH ×2 (10:19→22:02)
[2021-12-27] MEDS: QUEtiapine FUMARATE 100 MG TABLET (FP) PO SCH (22:03)
[2021-12-27] MEDS: MELATONIN 5 MG TABLETS PO SCH (22:03)
[2021-12-27] MEDS: THIAMINE HCL 100 MG TABLET (FP) PO SCH (22:04)
[2021-12-28] MEDS: chlordiazePOXIDE HCL 10 MG CAPSULE PO SCH ×2 (06:01→18:07)
[2021-12-28] MEDS: hydrOXYzine PAMOATE 25 MG CAPSULE (FP) PO SCH ×5 (06:01→22:31)
[2021-12-28] MEDS: GABAPENTIN 400 MG CAPSULE PO SCH ×3 (06:01→22:32)
[2021-12-28] MEDS: SULFAMETHOXAZOLE/TRIMETHOPRIM 800MG/160MG D.S. TABLET PO SCH ×2 (10:12→22:31)
[2021-12-28] MEDS: PRENATAL VITAMINS W/ FOLIC ACID TABLET (FP) PO SCH (10:12)
[2021-12-28] MEDS: THIAMINE HCL 100 MG TABLET (FP) PO SCH (22:32)
[2021-12-28] MEDS: MELATONIN 5 MG TABLETS PO SCH (22:32)
[2021-12-28] MEDS: QUEtiapine FUMARATE 100 MG TABLET (FP) PO SCH (22:32)
[2021-12-29] MEDS ORDERED: chlordiazePOXIDE HCL 10 MG CAPSULE PO ONE (05:00)
[2021-12-29] MEDS: GABAPENTIN 400 MG CAPSULE PO SCH (06:30)
[2021-12-29] MEDS: hydrOXYzine PAMOATE 25 MG CAPSULE (FP) PO SCH ×2 (06:31→10:29)
[2021-12-29 09:15] VITALS: BP 129/77; PULSE 66; TEMP 96.4
[2021-12-29] MEDS: SULFAMETHOXAZOLE/TRIMETHOPRIM 800MG/160MG D.S. TABLET PO SCH (10:28)
[2021-12-29] MEDS: PRENATAL VITAMINS W/ FOLIC ACID TABLET (FP) PO SCH (10:29)
== END 2021-12-29 12:20 | disposition home or self-care (01) | DRG 897 ==
LOC: YASAS 11:45 → Y3N 14:46
PROVIDERS: ADMIT Allergy & Immunology; ATTEND Surgery
PROC: HZ2ZZZZ Detoxification Services for Substance Abuse Treatment (ICD-10-PCS; principal; 2021-12-24)
DX: F10.230 Alcohol dependence with withdrawal, uncomplicated (principal); F19.282 Other psychoactive substance dependence with psychoactive substance-induced sleep disorder; F14.20 Cocaine dependence, uncomplicated; F17.210 Nicotine dependence, cigarettes, uncomplicated; F19.24 Other psychoactive substance dependence with psychoactive substance-induced mood disorder; F41.9 Anxiety disorder, unspecified; F32.A Depression, unspecified; F42.9 Obsessive-compulsive disorder, unspecified; G62.9 Polyneuropathy, unspecified; I10 Essential (primary) hypertension; K21.9 Gastro-esophageal reflux disease without esophagitis; M19.041 Primary osteoarthritis, right hand; M19.042 Primary osteoarthritis, left hand; M54.50 Low back pain, unspecified; G89.29 Other chronic pain; R73.03 Prediabetes; R74.01 Elevation of levels of liver transaminase levels
CPT/HCPCS: 36415; 80053; 81003; 85027; 86780; C9803-CS; Q0162; U0003; U0005

== ENCOUNTER 2023-03-12 12:52 | Inpatient (IN) | payer OTHER ==
[2023-03-12] MEDS ORDERED: COLLOIDAL OATMEAL 1 BAR EACH TP PRN (13:20)
[2023-03-12] MEDS ORDERED: MAGNESIUM HYDROX 2400MG/30ML ORAL SUSPENSION 30 ML CUP PO PRN (13:20)
[2023-03-12] MEDS ORDERED: BENZOCAINE/MENTHOL (CHLORASEPTIC ) LOZENGE MM PRN (13:20)
[2023-03-12] MEDS ORDERED: NALOXONE HCL (KLOXXADO) 8 MG SPRAY NS PRN (13:20)
[2023-03-12] MEDS ORDERED: IBUPROFEN 600 MG TABLET (FP) PO PRN (13:20)
[2023-03-12] MEDS ORDERED: POLYETHYLENE GLYCOL (HEALTHYLAX) 3350 17 GM PACKET PO PRN (13:20)
[2023-03-12] MEDS ORDERED: NALOXONE HCL 0.4 MG/ML VIAL IVPUSH PRN (13:20)
[2023-03-12] MEDS ORDERED: METHOCARBAMOL 500 MG TABLET PO PRN (13:20)
[2023-03-12] MEDS ORDERED: guaiFENesin 600 MG TABLET.ER (FP) PO PRN (13:20)
[2023-03-12] MEDS ORDERED: MAG HYDROX/AL HYDROX/SIMETH 30 ML UNIT-DOSE CUP PO PRN (13:20)
[2023-03-12] MEDS ORDERED: IBUPROFEN 400 MG TABLET (FP) PO PRN (13:20)
[2023-03-12] MEDS ORDERED: hydrOXYzine PAMOATE 25 MG CAPSULE (FP) PO PRN (13:20)
[2023-03-12] MEDS ORDERED: ACETAMINOPHEN 325 MG TABLET (FP) PO PRN (13:20)
[2023-03-12] MEDS ORDERED: LOPERAMIDE HCL 2 MG CAPSULE PO PRN (13:20)
[2023-03-12] MEDS ORDERED: BENZONATATE 200 MG CAPSULE PO PRN (13:20)
[2023-03-12] MEDS ORDERED: MELATONIN 5 MG TABLETS PO SCH (22:00)
[2023-03-12] MEDS ORDERED: QUEtiapine FUMARATE 100 MG TABLET (FP) PO SCH (22:00)
[2023-03-12] MEDS ORDERED: THIAMINE HCL 100 MG TABLET (FP) PO SCH (22:00)
[2023-03-13 07:22] VITALS: BP 108/70; PULSE 65; RESP 17; TEMP 96.6
[2023-03-13] MEDS ORDERED: SERTRALINE HCL 50 MG TABLET (FP) PO SCH (10:00)
[2023-03-13] MEDS ORDERED: NALTREXONE HCL 50 MG TABLET PO SCH (10:00)
[2023-03-13] MEDS ORDERED: PRENATAL VITAMINS W/ FOLIC ACID TABLET (FP) PO SCH (10:00)
== END 2023-03-13 11:30 | disposition left against medical advice (07) | DRG 894 ==
LOC: YASAS 12:52 → Y3E 12:53
PROVIDERS: ADMIT Allergy & Immunology; ATTEND Psychiatry & Neurology Pain Medicine
PROC: HZ42ZZZ Group Counseling for Substance Abuse Treatment, Cognitive-Behavioral (ICD-10-PCS; principal; 2023-03-12)
DX: F10.20 Alcohol dependence, uncomplicated (principal); F14.20 Cocaine dependence, uncomplicated; F17.210 Nicotine dependence, cigarettes, uncomplicated; F19.24 Other psychoactive substance dependence with psychoactive substance-induced mood disorder; F41.9 Anxiety disorder, unspecified; G62.9 Polyneuropathy, unspecified; I10 Essential (primary) hypertension; K21.9 Gastro-esophageal reflux disease without esophagitis; M19.041 Primary osteoarthritis, right hand; M19.042 Primary osteoarthritis, left hand; M54.50 Low back pain, unspecified; G89.29 Other chronic pain
CPT/HCPCS: 82962